=== PATIENT | female | born 1955 | race Caucasian/White ===

== ENCOUNTER 2024-02-07 12:28 | Emergency (ER) | payer OTHER, SELFPAY ==
[2024-02-07 12:30] VITALS: BP 185/100
--- NOTE | 2024-02-07 13:20 | ED.GENMED ---
History of Present Illness
<Bonny Snider PA-C - Last Filed: 02/07/24 19:39>
General
Chief Complaint: Eye Problems
Source: patient
Time Seen by Provider: 02/07/24 13:09
History of Present Illness
History of Present Illness:
69yoF with no significant past medical history presenting for evaluation of an eye problem. Patient reports bilateral cloudy vision, L>R, starting about a week ago. She was seen by a retinal specialist 4 days ago who performed a dilated eye exam.
She was told that she has bilateral cataracts and they are planning for cataract surgery once she obtains clearance. She was told during this visit that her right pupil was non-reactive. She has never been told this before. She researched this on
Reflex and she was reading that this may be caused by a brain aneurysm. She is very worried about this because her father from this. She states that the cloudiness in her vision seems to be worsening. She denies any double vision, visual
field cuts, eye pain, or headaches. No eye trauma. She has not seen a PCP in >10 years.
Phy Exam
<Bonny Snider PA-C - Last Filed: 02/07/24 19:39>
General Physical Exam
General Presentation: well appearing and no apparent distress
General age: appears stated age
General Skin: warm and dry
General Habitus: normal
General Mental: alert
ENT Exam
ENT Exam: TM's normal and normocephalic
Eye Exam
Eye Exam: EOMI, conjunctiva normal, visual allred normal and other (R pupil is larger than L and is non-reactive to light. Conjunctiva appears normal. EOMs intact. Visual allred normal. No ptosis. )
Cardiovascular Exam
Cardiovascular Exam: regular rate/rhythm
Pulmonary Exam
Pulmonary Exam: lungs clear, no respiratory distress, no crackles and no wheezing
Neurological Exam
Neurological Exam: alert and no motor deficits
[place] Coma Scale
Eye Opening: Spontaneous
Verbal Response: Oriented
Motor Response: Obeys Commands
GCS Total Score: 15
Skin Exam
Skin Exam: normal color and warm/dry
Psychiatric Exam
Psychiatric Exam: normal mood/affect
Course
Idalmislt;Bonny Snider PA-C - Last Filed: 02/07/24 19:39>
Orders/Labs/Results
Orders:
Orders
02/07/24 13:25
CT Head & Neck Angio W/wo IV Urgent
Comment:
Reason For Exam: Dilated unreactive R pupil
02/07/24 13:37
Complete Blood Count/With Diff Urgent
Comprehensive Metabolic Panel Urgent
Glycohemoglobin (HgbA1c) Urgent
02/07/24 14:27
0.9% Sodium Chloride 1000 ml [Nss] 1,000 ml IV BOLUS
Insulin Human Regular [Novolin R] 5 units IV NOW STA
02/07/24 14:28
Add On- LAB Urgent
Tests Added?: hemoglobin A1C
02/07/24 14:37
Diabetes Management by Nurse Practitioner Urgent
Consulting Provider: Ni Ya
Was provider already notified?: Yes
02/07/24 14:43
DIETARY CONSULT Routine
Reason for Consult: New diagnosis of diabetes, carb counting education
02/07/24 15:55
Bedside Glucose- Treatment ONCE
02/07/24 16:25
GlipiZIDE [Glucotrol] 5 mg PO ONCE ONE
METFORMIN HCl [Glucophage] 500 mg PO ONCE ONE
02/07/24 17:00
GlipiZIDE [Glucotrol] 5 mg PO BID@0800,1700
METFORMIN HCl [Glucophage] 500 mg PO BID@0800,1700
Abnormal Lab Results
02/07/24
13:37
Absolute Neuts (auto) 7.4 H 10^3/uL
(1.4-6.5)
Neutrophils % 78.0 H %
(42.2-75.2)
Lymphocytes % 15.5 L %
(20.5-51.1)
Glucose 496 H* mg/dl
(70-99)
02/07/24 13:37
02/07/24 13:37
Vital Signs
Initial and Last Documented VS:
Initial Vital Signs
Temp Pulse Resp BP Pulse Ox
98.1 F 113 18 185/100 98
02/07/24 12:30 02/07/24 12:30 02/07/24 12:30 02/07/24 12:30 02/07/24 12:30
Last Documented Vital Signs
Temp Pulse Resp BP Pulse Ox
98.1 F 113 18 154/83 97
02/07/24 12:30 02/07/24 12:30 02/07/24 12:30 02/07/24 16:05 02/07/24 15:14
<Stefania Farah MD - Last Filed: 02/07/24 14:57>
Orders/Labs/Results
Orders:
Orders
02/07/24 13:25
CT Head & Neck Angio W/wo IV Urgent
Comment:
Reason For Exam: Dilated unreactive R pupil
02/07/24 13:37
Complete Blood Count/With Diff Urgent
Comprehensive Metabolic Panel Urgent
Glycohemoglobin (HgbA1c) Urgent
02/07/24 14:27
0.9% Sodium Chloride 1000 ml [Nss] 1,000 ml IV BOLUS
Insulin Human Regular [Novolin R] 5 units IV NOW STA
02/07/24 14:28
Add On- LAB Urgent
Tests Added?: hemoglobin A1C
02/07/24 14:37
Diabetes Management by Nurse Practitioner Urgent
Consulting Provider: Ni Ya
Was provider already notified?: Yes
02/07/24 14:43
DIETARY CONSULT Routine
Reason for Consult: New diagnosis of diabetes, carb counting education
02/07/24 15:55
Bedside Glucose- Treatment ONCE
02/07/24 16:25
GlipiZIDE [Glucotrol] 5 mg PO ONCE ONE
METFORMIN HCl [Glucophage] 500 mg PO ONCE ONE
02/07/24 17:00
GlipiZIDE [Glucotrol] 5 mg PO BID@0800,1700
METFORMIN HCl [Glucophage] 500 mg PO BID@0800,1700
Abnormal Lab Results
02/07/24
13:37
Absolute Neuts (auto) 7.4 H 10^3/uL
(1.4-6.5)
Neutrophils % 78.0 H %
(42.2-75.2)
Lymphocytes % 15.5 L %
(20.5-51.1)
Glucose 496 H* mg/dl
(70-99)
02/07/24 13:37
02/07/24 13:37
Vital Signs
Initial and Last Documented VS:
Initial Vital Signs
Temp Pulse Resp BP Pulse Ox
98.1 F 113 18 185/100 98
02/07/24 12:30 02/07/24 12:30 02/07/24 12:30 02/07/24 12:30 02/07/24 12:30
Last Documented Vital Signs
Temp Pulse Resp BP Pulse Ox
98.1 F 113 18 154/83 97
02/07/24 12:30 02/07/24 12:30 02/07/24 12:30 02/07/24 16:05 02/07/24 15:14
Idalmislt;Bonny Snider PA-C - Last Filed: 02/07/24 19:39>
MDM/Problems Addressed
Differential Diagnosis Includes:
69yoF here with cloudy vision x 1 week. She was seen by a retinal specialist earlier this week for these symptoms and was diagnosed with cataracts. She was also told that her R pupil was non-reactive. Patient is worried that she may have a brain
aneurysm. She is otherwise asymptomatic. She is well appearing in no distress. She is hypertensive with otherwise normal vitals. Anisocoria noted and R pupil is non-reactive on my exam. Differential diagnosis includes but is not limited to:
cataracts, PCOM aneurysm, no ptosis to suggest 3rd nerve palsy
Initial ED plan: Check CBC, CMP, and CTA head/neck.
<Bonny Snider PA-C - Last Filed: 02/07/24 19:39>
*Critical Care Note
Total Time (30-74mins, 75-104mins- exclusive of procedures): Not Applicable
<Bonny Snider PA-C - Last Filed: 02/07/24 19:39>
Update Note
Update Note:
Labs reveal hyperglycemia with a glucose of 496. She has no prior hx of diabetes and has not seen a PCP in over a decade. Bicarb and anion gap are normal. IV fluid bolus as well as 4 units IV regular insulin ordered. HbA1c added. simulation educator
consulted who evaluated patient at bedside and provided education on diabetic management and fingerstick checks. Patient declines being started on insulin at this time. She was given prescriptions for metformin as well as glipizide by the diabetic
management AP. CTA head/neck is negative for acute findings. Specifically, there is no evidence of aneurysm. Visual symptoms very well may be related to patient's uncontrolled diabetes. Repeat fingerstick glucose is 236. She is stable for discharge.
She has a PCP appt scheduled for 02/18/24. ED return precautions discussed. She expressed understanding and is agreeable to plan. She was discharged in stable condition.
ED Attending Note
<Bonny Snider PA-C - Last Filed: 02/07/24 19:39>
-
Portions of this chart may have been created with voice recognition software.� Occasional wrong word or��sound alike� substitutions may have occurred due to the inherent limitations of voice recognition software.
<Stefania Farah MD - Last Filed: 02/07/24 14:57>
ED Attending Note
Patient seen and examined by attending physician: Yes
I performed the substantive portion of visit, reviewed & personally made and approve the management plan that is documented in note by myself or KENJI.: Yes
ED Attending Note:
69-year-old female recently seen by retina specialist and determined to have cataracts with need for surgery given her complaints of blurry vision bilaterally for at least several weeks if not longer. Incidentally patient does mention polyuria and
polydipsia and was noted to be in new onset diabetic with a blood sugar near 500 here without associated acidosis. simulation educator has been called bedside to initiate her outpatient management and patient instructed to follow-up very closely with
her primary care doctor this week. She was concerned because she was told her right pupil is nonreactive and thought this may be consistent with a aneurysm. There is a family history of aneurysms. On exam, and in history, patient denies any other
neurological or visual symptoms such as double vision, lid lag/ptosis, numbness, tingling, focal weakness, or other complaints. On exam, I note that pupils appear equal although right pupil is mildly sluggish to react although it still does react.
No photophobia, EOMI, no resting nystagmus. Neurological exam otherwise completely unremarkable. CTA pending. Visual complaints may be related to patient's hyperglycemia.
Discharge Plan
Departure
Patient Disposition: Home (Routine Discharge)
Date of Disposition: 02/07/24
Time of Disposition: 16:31
Patient with high blood pressure during this ER visit?: Yes
Discharge Problem:
Blurred vision, bilateral, Hyperglycemia
Instructions: Diabetes and diet
Prescriptions:
New
metformin 500 mg Tablet
500 mg PO BID 30 Days Qty: 60 0RF
Rx Instructions:
Take twice a day with breakfast and Dinner
glipizide 5 mg Tablet
5 mg PO BID 30 Days Qty: 60 0RF
Rx Instructions:
TAKE TWICE A DAY WITH BREAKFAST AND DINNER
(DME) Contour Next Test Strips Strip
Qty: 60 0RF
Rx Instructions:
Pt Testing 2 times a day
(DME) lancets [Microlet Lancet] Misc
Qty: 60 0RF
Rx Instructions:
Pt testing 2 times a day
Referrals:
UNKNOWN - PT DOES,NOT KNOW [Family Provider] -
Activity Restrictions/Additional Instructions:
Take metformin and glipizide as prescribed. Check your blood sugar twice daily.
Please follow-up with your primary care provider on 02/18/24 as previously scheduled. Return to the ER with any new or worsening symptoms.
Interventions
Interventions:
*Risk Screen - Suicide Last Done: 02/07/24 12:29
*General Assessment Last Done: 02/07/24 12:30
*Neglect/Abuse Screening Last Done: 02/07/24 13:33
ED- Fall Risk Assessment Last Done: 02/07/24 13:33
*ED COVID-19 Vaccine History Last Done: 02/07/24 13:33
*Nursing Disposition Last Done: 02/07/24 17:02
Discharge Date and Time
Discharge Date/Time: 02/07/24 17:04
Print Language: ANDORRAN
[2024-02-07 13:33] VITALS: BMI 22.5
[2024-02-07 13:43] VITALS: BP 156/86
[2024-02-07 13:56] LABS: % Basophils 0.6 % (0-2); % Immature Granulocytes 0.3 % (0-0.5); % Lymphocytes 15.5 % (20.5-51.1); % Monocytes 4.6 % (1.7-9.3); Absolute Basophils 0.1 10^3/uL (0-0.2); Absolute Eosinophils 0.1 10^3/uL (0-0.7); Absolute Lymphocytes 1.5 10^3/uL (1.2-3.4); Absolute Monocytes 0.4 10^3/uL (0.1-0.6); Absolute Neutrophils 7.4 10^3/uL (1.4-6.5); Hematocrit 44.7 % (37.0-47.0); Hemoglobin 15.8 g/dL (12.0-16.0); Mean Corp Hgb Conc. 35.3 g/dL (33.0-37.0); Mean Corpuscular Hgb 29.4 pg (27.0-31.0); Mean Corpuscular Volume 83.2 fL (81.0-99.0); Mean Platelet Volume 9.9 fL (7.4-10.4); Nucleated Red Blood Cells % 0 %; Platelet Count 388 10^3/uL (130-400); Red Blood Cell Count 5.37 10^6/uL (4.20-5.40); Red Cell Dist. Width 12.3 % (11.5-14.5); White Blood Cell Count 9.6 10^3/uL (4.8-10.8)
[2024-02-07 14:00] VITALS: BP 128/80
[2024-02-07 14:23] LABS: ALT (SGPT) 22 U/L (0-35); AST (SGOT) 25 U/L (14-36); Albumin 4.1 g/dl (3.5-5.0); Alkaline Phosphatase 76 U/L (38-126); Blood Urea Nitrogen 14 mg/dl (7-17); Calcium 9.2 mg/dl (8.4-10.2); Carbon Dioxide 28 mmol/L (22-30); Chloride 99 mmol/L (98-107); Estimated Creatinine Clearance 64 ml/min; Glucose 496 mg/dl (70-99); Potassium 4.6 mmol/L (3.5-5.1); Sodium 136 mmol/L (135-145); Total Bilirubin 0.5 mg/dl (0.2-1.3); Total Protein 6.6 g/dl (6.3-8.2); eGFR > 60.00
[2024-02-07] MEDS: NOVOLIN R 5 UNITS IV (14:33)
[2024-02-07] MEDS: NSS 1000 IV (14:35)
--- NOTE | 2024-02-07 14:44 | PN.DE.MGMTRT ---
Insulin Management
- -
02/07/2024: Diabetes Management Consult
69 year old female w/o known significant PMH, presented for evaluation of an eye problem. Patient reports bilateral cloudy vision, L>R, starting about a week ago. She was seen by a retinal specialist 4 days ago who performed a dilated eye exam. She
was told that she has bilateral cataracts and they are planning for cataract surgery once she obtains clearance. She was told during this visit that her right pupil was non-reactive. She has never been told this before.
She states that the cloudiness in her vision seems to be worsening. She denies any double vision, visual field cuts, or headaches. She has not seen a PCP in >10 years. Her glucose on admission was 496, A1C pending, Cr 0.6, eGFR >60
Pt awake, A/O x3, sitting up in bed, offers no complaints, able to discuss diabetes plan of mgt, - Monty at bedside and supportive.
Received Regular insulin IV 5 units @14:33.
Discussed with pt options for mgt, pt declined insulin or combo of oral and insulin but was agreeable to oral agents.
Will start Metformin 500 mg BID and Glipizide 5 mg BID
Pt has a f/u appt with her PCP next week. Instructed pt to start monitoring blood sugar twice a day fasting and 2 hrs after dinner and take the log to her PCP to reassess and adjust her medications.
Provided Glucose monitor with instructions at bedside. will send Rx for supplies.
Diabetes plan of care discussed with Pt's Nurse and PA in ED.
Diabetes History
- -
Type of Diabetes: 2
Pre-Admission Diabetes Regimen
02/07/24
13:37
Creatinine 0.6
Lab Results
Hemoglobin A1c Cancelled 02/07/24 14:26
Insulin Pump Settings
IP Diabetes Regimen
02/07/24
13:37
Glucose 496 H*
Patient Education
[2024-02-07 15:00] VITALS: BP 143/86
--- NOTE | 2024-02-07 15:22 | NUTR ---
Dietitian saw patient in the ED for new diagnosis of diabetes, carb counting education.
[2024-02-07 16:05] VITALS: BP 154/83
--- NOTE | 2024-02-07 16:20 | PN.DE ---
Diabetes Education
- -
Diabetes Education Consult
Met with Brooke and her - Monty in ED for glucose monitor instructions. Current A1C pending. Discussed current blood sugar of 200-400, diabetes related short and fci complications, life style modification and self management at home.
Provided with Contour Next EZ glucometer, instructions with good return demonstration, result 236 mg/dl.
Discussed testing pattern and expected results and information marked in the take home booklet.
Encouraged physical activity, discussed and reviewed importance of reducing CHO intake, and checking BS to assess food/medication effect on her BS. Discussed OP DSME classes, and encouraged her to call office and register for diabetes classes.
Will need RX for test strips and lancets for the Contour Next EZ, testing 2x/day at discharge- Rx has been sent to her [facility] pharmacy as discussed
Discussed plan of care including medications for management at home with Physician Street And Building Decorator in ED and pt's Nurse.
[2024-02-07] MEDS: GLUCOTROL 5 MG PO (16:47)
[2024-02-07] MEDS: GLUCOPHAGE 500 MG PO (16:47)
[2024-02-08 09:57] LABS: Glycohemoglobin (HgbA1c) 15.3 % (4.0-5.6)
== END 2024-02-07 17:04 | disposition home or self-care (01) ==
LOC: EMR 12:28
PROVIDERS: Physician Assistant; CONSULT PHYSICIAN Nurse Practitioner Acute Care; EMERGENCY PHYSICIAN Emergency Medicine
DX: H53.8 Other visual disturbances (principal); E11.65 Type 2 diabetes mellitus with hyperglycemia; E11.36 Type 2 diabetes mellitus with diabetic cataract
CPT/HCPCS: 99284; 96374; 96361; 70496; 70498; 80053; 83036; 85025; Q9967

== ENCOUNTER 2025-02-25 07:17 | Emergency (ER) | payer OTHER, SELFPAY ==
[2025-02-25 07:21] VITALS: BP 166/86
[2025-02-25 08:02] VITALS: BMI 27.8
[2025-02-25 08:12] LABS: Hematocrit 38.8 % (37.0-47.0); Hemoglobin 13.1 g/dL (12.0-16.0); Mean Corp Hgb Conc. 33.8 g/dL (33.0-37.0); Mean Corpuscular Volume 88.2 fL (81.0-99.0); Platelet Count 368 10^3/uL (130-400); Red Cell Dist. Width 12.9 % (11.5-14.5)
[2025-02-25 08:36] LABS: ALT (SGPT) 21 U/L (0-35); AST (SGOT) 24 U/L (14-36); Albumin 4.4 g/dl (3.5-5.0); Alkaline Phosphatase 41 U/L (38-126); Calcium 9.3 mg/dl (8.4-10.2); Carbon Dioxide 26 mmol/L (22-30); Chloride 106 mmol/L (98-107); Estimated Creatinine Clearance 56 ml/min; Glucose 167 mg/dl (70-99); Potassium 5.1 mmol/L (3.5-5.1); Sodium 138 mmol/L (135-145); Total Protein 7.3 g/dl (6.3-8.2); eGFR > 60.00
[2025-02-25 08:46] LABS: Blood Urea Nitrogen 20 mg/dl (7-17)
--- NOTE | 2025-02-25 08:59 | ED.GENMED ---
History of Present Illness
General
Chief Complaint: Vaginal Bleeding
Time Seen by Provider: 02/25/25 07:29
History of Present Illness
History of Present Illness:
70-year-old female presents for evaluation of heavy vaginal bleeding that began last night. States that she had significant episodes of clots and large volume of blood that has since improved as of this morning. Denies any associated abdominal
cramping or pain currently. Does not take blood thinners or antiplatelets. Does not follow regularly with HEALTH INFORMATICS ADVISOR
Review of Systems
Review of Systems
Allergies reviewed?: Yes
Phy Exam
Physical Exam
Physical Exam:
GEN: Well appearing, NAD, WDWN
HEENT: Oral mucosa moist, no scleral icterus
Cardiac: Regular rate
Lung: No respiratory distress, no tachypnea
MSK: No gross deformity or injuries
Skin: Good color, no pallor or jaundice, no rashes
Neuro: AO x3, moves all extremities freely
Psych: Calm, cooperative
Course
Orders/Labs/Results
Orders:
Orders
02/25/25 07:55
US Pelvis W Transvag Combined Urgent
Comment:
Reason For Exam: post menopausal bleeding
02/25/25 08:01
Complete Blood Count/No Diff Urgent
Comprehensive Metabolic Panel Urgent
Abnormal Lab Results
02/25/25
08:01
WBC 11.9 H 10^3/uL
(4.8-10.8)
BUN 20 H mg/dl
(7-17)
Glucose 167 H mg/dl
(70-99)
02/25/25 08:01
02/25/25 08:01
Vital Signs
Initial and Last Documented VS:
Initial Vital Signs
Temp Pulse Resp BP Pulse Ox
98.4 F 92 14 166/86 98
02/25/25 07:21 02/25/25 07:21 02/25/25 07:21 02/25/25 07:21 02/25/25 07:21
Last Documented Vital Signs
Temp Pulse Resp BP Pulse Ox
98.4 F 84 16 136/72 97
02/25/25 07:21 02/25/25 09:24 02/25/25 09:24 02/25/25 09:24 02/25/25 09:24
MDM/Problems Addressed
MDM/Problems Addressed:
Imaging is suspicious for endometrial carcinoma. Contacted on-call HEALTH INFORMATICS ADVISOR to help with coordination of outpatient follow-up for tissue sampling. Patient aware of need for close follow-up
*Pulse Oximetry
SaO2: 98
Oxygen Mode of Delivery: Room air
Patient hypoxic: no
*Critical Care Note
Total Time (30-74mins, 75-104mins- exclusive of procedures): Not Applicable
ED Attending Note
-
Portions of this chart may have been created with voice recognition software.� Occasional wrong word or��sound alike� substitutions may have occurred due to the inherent limitations of voice recognition software.
Discharge Plan
Departure
Patient Disposition: Home (Routine Discharge)
Date of Disposition: 02/25/25
Time of Disposition: 09:36
Patient with high blood pressure during this ER visit?: No
Discharge Problem:
Post-menopausal bleeding
Prescriptions:
No Action
metformin 500 mg Tablet
500 mg PO BID 30 Days Qty: 60 0RF
Rx Instructions:
Take twice a day with breakfast and Dinner
glipizide 5 mg Tablet
5 mg PO BID 30 Days Qty: 60 0RF
Rx Instructions:
TAKE TWICE A DAY WITH BREAKFAST AND DINNER
(DME) Contour Next Test Strips Strip
Qty: 60 0RF
Rx Instructions:
Pt Testing 2 times a day
(DME) lancets [Microlet Lancet] Misc
Qty: 60 0RF
Rx Instructions:
Pt testing 2 times a day
Referrals:
Radha Muir CRNP [Family Provider, Family Practice]
Colleen Pastrana MD [Active, Gynecology]
Referral Note: Call today for follow up
Activity Restrictions/Additional Instructions:
Call HEALTH INFORMATICS ADVISOR office today for follow-up appointment as you will likely need tissue sampling/biopsy to confirm our suspected diagnosis of possible uterine/endometrial cancer
If your bleeding worsens or you begin to feel profoundly lightheaded or dizzy please return to the emergency department right away
Interventions
Interventions:
*Risk Screen - Suicide Last Done: 02/25/25 07:22
*General Assessment Last Done: 02/25/25 07:39
*Neglect/Abuse Screening Last Done: 02/25/25 07:22
*ED- Fall Risk Assessment Last Done: 02/25/25 07:26
*ED COVID-19 Vaccine History Last Done: 02/25/25 07:39
*ED Influenza Vaccine History Last Done: 02/25/25 07:39
*Nursing Disposition Last Done: 02/25/25 09:51
ED-Female Genitourinary Assessment Last Done: 02/25/25 07:26
Discharge Date and Time
Discharge Date/Time: 02/25/25 10:00
Print Language: POLISH
[2025-02-25 09:24] VITALS: BP 136/72
== END 2025-02-25 10:00 | disposition home or self-care (01) ==
LOC: EMR 07:17
PROVIDERS: Physician Assistant; EMERGENCY PHYSICIAN Emergency Medicine; FAMILY PHYSICIAN Nurse Practitioner Family
DX: N95.0 Postmenopausal bleeding (principal)
CPT/HCPCS: 99284; 76830; 76856; 80053; 85027